=== PATIENT | male | born 1990 | race Caucasian/White ===

== ENCOUNTER 2018-09-09 21:47 | Emergency (ER) | payer OTHER ==
[~2018-09-09] VITALS: Ht 188 cm; Wt 74.8 kg
[2018-09-10 01:55] VITALS: BP 127/75
[2018-09-10] MEDS ORDERED: cefTRIAXone SOD 1,000 MG VL IM ONE (03:45)
== END 2018-09-10 04:19 | disposition home or self-care (01) ==
LOC: ER 21:47
DX: N45.1 Epididymitis (principal); Z88.0 Allergy status to penicillin
CPT/HCPCS: 76870; 96372; 99284; J0696

== ENCOUNTER 2019-01-08 03:40 | Emergency (ER) | payer OTHER ==
[~2019-01-08] VITALS: Ht 188 cm; Wt 72.6 kg
[2019-01-08 04:57] LABS: Basophils # (auto) 0.2 uL; Eosinophils # (auto) 0 uL; Hematocrit 45.7 % (41.0-53.0); Hemoglobin 15.6 g/dL (13.5-17.5); Lymphocytes # (auto) 0.3 uL; Lymphocytes % (auto) 1.4 % (10.0-50.0); Mean Corpuscular Hemoglobin 29.8 pg (28.0-32.0); Mean Corpuscular Volume 87.6 fL (80.0-100.0); Monocytes # (auto) 0.7 uL; Monocytes % (auto) 3.7 % (0.0-12.0); Neutrophils # (auto) 18.3 uL; Neutrophils % (auto) 93.9 % (37.0-80.0); Platelet Count (auto) 248 10^3/uL (140-450); Red Blood Cells 5.22 10^6/uL (4.5-5.90); Red Cell Distribution Width 12.9 % (11.8-14.3); White Blood Cell 19.5 10^3/uL (4.4-10.8)
[2019-01-08] MEDS ORDERED: SODIUM CHLORIDE 0.9% 2,000 ML IV ONE (05:00)
[2019-01-08] MEDS ORDERED: ONDANSETRON HCL 4 MG/2 ML VIAL IV ONE (05:00)
[2019-01-08] MEDS ORDERED: DIPHENOXYLATE W/ATROPINE 2.5 MG TAB PO ONE (05:00)
[2019-01-08 05:14] LABS: Alanine Aminotransferase 64 U/L (16-61); Albumin 4.9 g/dL (3.4-5.0); Amylase 48 U/L (25-115); Anion Gap 9 (5-15); Aspartate Aminotransferase 40 U/L (15-37); Blood Urea Nitrogen 21 mg/dL (7-18); Carbon Dioxide 22 mmol/L (21-32); Chloride 106 mmol/L (98-107); Glucose 154 mg/dL (74-106); Lipase 73 U/L (73-393); Potassium 3.9 mmol/L (3.5-5.1); Sodium 137 mmol/L (136-145)
[2019-01-08 05:15] LABS: Salicylate < 1.7 mg/dL (2.8-20.0)
[2019-01-08 05:19] LABS: Acetaminophen < 2.0 ug/mL (10-30); Alkaline Phosphatase 97 U/L (45-117); BUN/Creatinine Ratio 15.7; Bilirubin, Total 1.6 mg/dL (0.2-1.0); GFR African American 82 mL/min; GFR Non-African American 67 mL/min; Total Protein 8.5 g/dL (6.4-8.2)
[2019-01-08] MEDS ORDERED: metroNIDAZOLE 500MG/100ML 100 ML IV ONE (06:00)
[2019-01-08 06:39] VITALS: BP 102/58
== END 2019-01-08 06:45 | disposition home or self-care (01) ==
LOC: ER 03:43
DX: A09 Infectious gastroenteritis and colitis, unspecified (principal); Z88.0 Allergy status to penicillin
CPT/HCPCS: 36415; 80053; 80329; 82150; 83690; 84484; 85025; 93005; 94761; 96361; 96365; 96375; 99284; J2405; J3490